=== PATIENT | female | born 1930 | race Two or more races ===

== ENCOUNTER 2017-07-10 09:23 | Outpatient (CLI) | payer OTHER | END 2017-07-10 09:32 | disposition home or self-care (01) | LOC: LAB 09:23 | DX: I10 Essential (primary) hypertension (principal); E78.4 Other hyperlipidemia; E03.4 Atrophy of thyroid (acquired) ==

== ENCOUNTER 2017-07-10 09:35 | Outpatient (CLI) | payer OTHER | END 2017-07-10 09:42 | disposition home or self-care (01) | LOC: RAD 09:35 | DX: J41.0 Simple chronic bronchitis (principal); M54.2 Cervicalgia; M54.5 Low back pain; M54.6 Pain in thoracic spine; M25.551 Pain in right hip ==

== ENCOUNTER 2017-07-10 11:57 | Outpatient (CLI) | payer OTHER | END 2017-07-10 12:13 | disposition home or self-care (01) | LOC: NUCLEAR 11:57 | DX: Z13.820 Encounter for screening for osteoporosis (principal); M81.0 Age-related osteoporosis without current pathological fracture ==

== ENCOUNTER 2017-08-06 16:45 | Outpatient (CLI) | payer OTHER | END 2017-08-06 16:46 | disposition home or self-care (01) | LOC: LAB 16:45 | DX: I10 Essential (primary) hypertension (principal); E78.4 Other hyperlipidemia; E03.4 Atrophy of thyroid (acquired) ==

== ENCOUNTER → 2017-09-09 | Outpatient (CLI) | payer OTHER | END | disposition home or self-care (01) | LOC: NUCLEAR 09:20 | DX: I10 Essential (primary) hypertension (principal); R01.1 Cardiac murmur, unspecified ==

== ENCOUNTER → 2017-10-24 | Outpatient (CLI) | payer OTHER | END | disposition home or self-care (01) | LOC: RAD 06:26 | DX: M53.82 Other specified dorsopathies, cervical region (principal) ==

== ENCOUNTER 2017-11-19 06:06 | Outpatient (CLI) | payer OTHER | END 2017-11-19 06:16 | disposition home or self-care (01) | LOC: LAB 06:06 | DX: D50.0 Iron deficiency anemia secondary to blood loss (chronic) (principal); E78.00 Pure hypercholesterolemia, unspecified; E11.9 Type 2 diabetes mellitus without complications; E03.8 Other specified hypothyroidism ==

== ENCOUNTER 2018-02-19 10:22 | Outpatient (CLI) | payer OTHER | END 2018-02-19 11:12 | disposition home or self-care (01) | LOC: LAB 10:22 | DX: I10 Essential (primary) hypertension (principal); E78.4 Other hyperlipidemia; E03.4 Atrophy of thyroid (acquired); I50.89 Other heart failure ==

== ENCOUNTER 2018-02-19 10:24 | Outpatient (CLI) | payer OTHER | END 2018-02-19 10:31 | disposition home or self-care (01) | LOC: NUCLEAR 10:24 | DX: I10 Essential (primary) hypertension (principal); I35.0 Nonrheumatic aortic (valve) stenosis ==

== ENCOUNTER 2018-04-23 06:49 | Outpatient (CLI) | payer OTHER | END 2018-04-23 15:00 | disposition home or self-care (01) | LOC: LAB 06:49 | DX: D64.89 Other specified anemias (principal); E78.49 Other hyperlipidemia; E03.8 Other specified hypothyroidism ==

== ENCOUNTER → 2018-05-13 09:24 | Outpatient (CLI) | payer OTHER | END | disposition home or self-care (01) | LOC: LAB 09:24 | DX: N39.0 Urinary tract infection, site not specified (principal); R82.79 Other abnormal findings on microbiological examination of urine ==

== ENCOUNTER 2018-07-10 14:46 | Emergency (ER) | payer OTHER ==
[~2018-07-10] VITALS: Ht 162.6 cm; Wt 79.4 kg
[2018-07-10] MEDS ORDERED: AVAPRO75 MG (15:13)
[2018-07-10] MEDS ORDERED: SYNTHROID175 MCG (15:13)
[2018-07-10] MEDS ORDERED: NORVASC2.5 M1 (15:13)
[2018-07-10] MEDS ORDERED: ASPIR 8181 MG (15:13)
[2018-07-10] MEDS ORDERED: HYDROCHLOROTH12.5 MG (15:14)
[2018-07-10] MEDS ORDERED: GLUCOSAMINE &1 EAC1 (15:14)
[2018-07-10] MEDS ORDERED: VITAMIN D34000 UNIT (15:14)
[2018-07-10] MEDS ORDERED: LIPITOR20 MG (15:14)
== END 2018-07-10 23:25 | disposition home or self-care (01) ==
LOC: ER 14:46
DX: S70.02XA Contusion of left hip, initial encounter (principal); W18.39XA Other fall on same level, initial encounter; Y93.89 Activity, other specified; Y92.098 Other place in other non-institutional residence as the place of occurrence of the external cause; Y99.8 Other external cause status; J40 Bronchitis, not specified as acute or chronic

== ENCOUNTER → 2018-09-11 07:54 | Outpatient (CLI) | payer OTHER ==
[~2018-09-11 07:54] MED LIST: ASPIR 8181 MG; AVAPRO75 MG; GLUCOSAMINE &1 EAC1; HYDROCHLOROTH12.5 MG; LIPITOR20 MG; NORVASC2.5 M1; SYNTHROID175 MCG; VITAMIN D34000 UNIT
== END | disposition home or self-care (01) ==
LOC: LAB 07:54
DX: E03.8 Other specified hypothyroidism (principal); E88.89 Other specified metabolic disorders; I10 Essential (primary) hypertension

== ENCOUNTER 2018-11-04 12:24 | Outpatient (CLI) | payer OTHER | END 2018-11-04 14:49 | disposition home or self-care (01) | LOC: RAD 12:24 | DX: M24.551 Contracture, right hip (principal); M75.81 Other shoulder lesions, right shoulder ==

== ENCOUNTER 2018-11-25 09:11 | Outpatient (CLI) | payer OTHER | END 2018-11-25 09:17 | disposition home or self-care (01) | LOC: LAB 09:11 | DX: E03.8 Other specified hypothyroidism (principal); E78.49 Other hyperlipidemia; I10 Essential (primary) hypertension ==

== ENCOUNTER 2018-12-16 17:49 | Outpatient (CLI) | payer OTHER | END 2018-12-17 16:06 | disposition home or self-care (01) | LOC: LAB 17:49 | DX: N39.0 Urinary tract infection, site not specified (principal); B96.29 Other Escherichia coli [E. coli] as the cause of diseases classified elsewhere ==

== ENCOUNTER 2019-01-05 10:30 | Emergency (ER) | payer OTHER ==
[~2019-01-05] VITALS: Ht 162.6 cm; Wt 81.6 kg
== END 2019-01-05 13:15 | disposition home or self-care (01) ==
LOC: ER 10:30
DX: M25.531 Pain in right wrist (principal)